=== PATIENT | male | born 1950 | race Caucasian/White ===

== ENCOUNTER → 2021-05-13 08:59 | Outpatient (CLI) | payer OTHER, SELFPAY ==
[2021-05-13 17:57] LABS: SARS-CoV-2 RNA PCR Negative
== END ==
PROVIDERS: PCP Internal Medicine; Visit Provider Internal Medicine
DX: Z20.822 Contact with and (suspected) exposure to COVID-19 (principal)
CPT/HCPCS: C9803; U0003; U0005

== ENCOUNTER 2022-03-19 14:26 | Outpatient (CLI) | payer OTHER, SELFPAY ==
--- NOTE | ~2022-03-19 | XR_ITS ---
XR elbow RT min 3V DATE: 03/19/2022 14:44 INDICATION: Right elbow injury, pain TECHNIQUE: 4 views COMPARISON: None FINDINGS: No fracture or dislocation of the ankle or joint effusion. No periosteal reaction or bone d estruction. IMPRESSION: Negative Reviewed, dictated and finalized at location B. [employer] IMPRESSION: Negative
== END 2022-03-19 14:27 | disposition home or self-care (01) ==
PROVIDERS: PCP Family Medicine; Visit Provider Family Medicine
DX: S59.901A Unspecified injury of right elbow, initial encounter (principal); X58.XXXA Exposure to other specified factors, initial encounter; M25.511 Pain in right shoulder
CPT/HCPCS: 73080

== ENCOUNTER 2022-05-11 09:27 | Outpatient (CLI) | payer OTHER, SELFPAY ==
--- NOTE | 2022-05-11 11:00 | NEURO_ITS ---
Impression: Patient reports a history of right elbow pain, as well as numbness in the right index finger. # Moderate right Carpal Tunnel Syndrome. # Normal needle/EMG exam. # Clinical correlation recommended. Motor Nerve Conduction Upper Extremities Median Nerve Conduction Velocity (m/sec) Terminal Latency (msec) Response Voltage(mV) Elbow-Wrist Wrist Elbow Wrist Right 63 5.2 5 5 Left Ulnar Nerve Conduction Velocity (m/sec) Terminal Latency (msec) Response Voltage(mV) Above Elbow Below Elbow Wrist Above Elbow Below Elbow Wrist Right 52 49 3.1 6 5 7 Left F-Wave Latency Median (ms) Ulnar (ms) Right 29.1 30.2 Left Sensory Nerve Conduction Upper Extremities Median Nerve Stimulation Terminal Latency (msec) Wrist/Digit Response Voltage (uV) Wrist Right 4.1/4.1 36/44 Left Ulnar Nerve Stimulation Terminal Latency (msec) Wrist/Digit Response Voltage (uV) Wrist Right 3.7 32 Left Radial Nerve Terminal Latency (msec) Response Voltage(mV) Right 2.3 27 Left Left Right Muscles Examined Fibrillation Fasciculation Scarcity Voltage Duration Left Right Left Right Left Right Left Right Left Right Deltoid Biceps X Brachioradialis Triceps X Pronator Teres X Ext Indicis X Ext Digitorum X Abd Poll Brev X 1st Dorsal Interosseus Paraspinals MTDD
== END 2022-05-11 09:28 | disposition home or self-care (01) ==
LOC: ANHNEURO 09:27
PROVIDERS: PCP Family Medicine; Visit Provider Family Medicine
DX: R20.2 Paresthesia of skin (principal); G56.01 Carpal tunnel syndrome, right upper limb
CPT/HCPCS: 95886; 95909

== ENCOUNTER 2022-06-04 09:45 | Outpatient (RCR) | payer OTHER, SELFPAY ==
--- NOTE | 2022-06-04 10:49 | OTOPEVAL1 ---
Assessment and note entered by Cali Garcia, ANASTASIIAR/Alberto, CHT Evaluation Information Assessment Status Evaluation & Discharge Diagnosis Carpal tunnel syndrome, Right UE Onset ~1 month ago Subjective Information Patient reports experiencing radiating pain in the right upper extremity after bumping his elbow about a month ago. He reports that at first the pain was so bad he was unable to sleep in bed and was having to sleep in a recliner. He states that he is back to normal sleeping and working out again, noting that he has been taking it easy on anything with the right arm. Reporting no pain at this time. States he wanted to still keep this appointment to be checked out and to ensure he was doing all the right things. Reported Pain Level Pain Score 0: Self Report Additional Pain Score Comments Patient reporting no pain today or for the past few days. He states all of his symptoms have nearly resolved. Assessment OT Clinical Summary Patient referred to outpatient hand therapy with dx of carpal tunnel syndrome. He reports onset of symptoms about a month ago when he bumped his elbow on a door. He was prescribed NSAID and has been resting the elbow. These have resolved his symptoms. Therapy evaluation today reveals normal ROM and strength of the right UE. Sensation tests are all normal. Tinel's of the ulnar and median nerve are negative. Nerve tension tests are also negative. Instructed in nerve flossing HEP to mobilize the nerve. Instructed in proper body mechanics with repetitive or prolonged tasks, such as when reading or at a computer. He verbalizes and demonstrates excellent understanding of all materials. No further skilled OT indicated at this time. Discharge with patient independent with all materials. Plan of Care OT Services Indicated No These treatments will address the objective and functional deficits as defined above. The patient will be advanced safely and appropriately in order for the patient to progress towards his/her prior level of function. Additional exercises will be introduced and as well as a comprehensive home exercise program upon discharge, if needed, ?to ensure carryover of functional gains achieved in the clinic. This treatment plan has been reviewed and agreement upon by the patient.
== END 2022-06-04 11:06 | disposition home or self-care (01) ==
LOC: ANHHIOT 09:45
PROVIDERS: PCP Family Medicine; Visit Provider Family Medicine
DX: G56.01 Carpal tunnel syndrome, right upper limb (principal)
CPT/HCPCS: 97110; 97165

== ENCOUNTER 2024-01-19 13:06 | Outpatient (CLI) | payer OTHER, SELFPAY ==
--- NOTE | ~2024-01-19 | CT_ITS ---
EXAMINATION: CT abdomen pelvis wo con DATE: 01/19/2024 13:26 INDICATION: Hematuria, unspecified. TECHNIQUE: Computed tomography (CT) of the abdomen and pelvis was performed without intravenous contr ast. Automated exposure control and iterative reconstruction technique were employed. The dose-length product was 757.52 mGy-cm. COMPARISON: None. FINDINGS: The visualized portions of the lung bases are clear without pneumonia or pleural effusion. The heart size is normal. No pericardial effusion. There is a 2.0 cm subcutaneous mass in left automotive finance manager ior thorax, likely a sebaceous cyst. There are cysts in the liver measuring up to 15 mm. The gallblad rosa is normal. Calcifications in the spleen are consistent with old granulomatous disease. The pancre as and adrenal glands are normal. There are masses in the right kidney measuring up to 17 mm measurin g soft tissue attenuation. There are 7 stones in right kidney measuring up to 5 mm. There is a 7 mm s tone in left kidney. There is mild left hydronephrosis and proximal hydroureter. There is a 6 mm ston e in proximal left ureter. The prostate is moderately enlarged. There are no dilated loops of bowel. The appendix is not visualized. There are no pathologically enlarged lymph nodes. There is no free in traperitoneal fluid. There is mild lumbar spondylosis. IMPRESSION: 1. 6 mm stone in proximal left ureter with mild left hydronephrosis and proximal hydroureter. 2. Bilateral nonobstructing kidney stones. 3. Right kidney masses measuring up to 17 mm, which may be hemorrhagic cysts, but renal cell carcinom a cannot be excluded. Abdomen MRI or CT without and with contrast is recommended. Reviewed, dictated and finalized at location A. IMPRESSION: 1. 6 mm stone in proximal left ureter with mild left hydronephrosis and proxima l hydroureter. 2. Bilateral nonobstructing kidney stones. 3. Right kidney masses measuring up to 17 mm, which may be hemorrhagic cysts, b ut renal cell carcinoma cannot be excluded. Abdomen MRI or CT without and with contrast is recommended.
== END 2024-01-19 13:07 | disposition home or self-care (01) ==
LOC: GOSHIMG 13:06
PROVIDERS: PCP Nurse Practitioner Family; Visit Provider Nurse Practitioner Family
DX: R10.9 Unspecified abdominal pain (principal); R31.9 Hematuria, unspecified; N20.0 Calculus of kidney
CPT/HCPCS: 74176

== ENCOUNTER 2024-01-24 13:43 | Outpatient (CLI) | payer OTHER, SELFPAY ==
--- NOTE | ~2024-01-24 | XR_ITS ---
XR abdomen/kub 1V Ordering provider: Mario Garza MD History: . Lt ureteral stone . Comparison: January 18, 2024 FINDINGS: BOWEL: Nonobstructive bowel gas pattern. ORGANOMEGALY: None. SIGNIFICANT PATHOLOGIC CALCIFICATIONS: Stone is seen projected over the left sacral alar. OTHER: No free air is seen under the diaphragm. Degenerative changes of the spine. Bilateral hip oste oarthritic changes. IMPRESSION: NO ACUTE ABDOMINAL FINDINGS. Left lower ureteric stone. Reviewed, dictated and finalized at location A.
== END 2024-01-24 13:44 | disposition home or self-care (01) ==
PROVIDERS: PCP Nurse Practitioner Family; Visit Provider Urology
DX: N20.1 Calculus of ureter (principal)
CPT/HCPCS: 74018

== ENCOUNTER 2024-01-27 00:33 | Day surgery (SDC) | payer OTHER, SELFPAY ==
[2024-01-26 13:29] VITALS: BMI 25.1
--- NOTE | 2024-01-26 13:46 | PC.NURSE ---
Report to the Outpatient Waiting Room, entrance under the green pavilion located off [facility], at time ___9:30AM____ on date ___01/27/24____. Planned Procedure Time: ___11:30AM .? Time changes happen often and if your time is changed the preop area will call you the afternoon before. - You and your visitor will be asked to self-screen and do not enter if you have any COVID symptoms. Please call surgeon if you need to reschedule. - A mask is optional within the hospital at this time. Patients may have clear liquids (water, carbonated beverages, clear teas, apple juice) until 3 hours prior to surgery with a maximum of 20 ounces. - No food from midnight until time of surgery and no smoking - Infants may have breast milk until 4 hours before surgery, formula 6 hours prior to surgery. - Children will be allowed to drink immediately following surgery.? If applicable, please bring a bottle or sippy cup to assist with drinking. Juice, water, soda, and popsicles are readily available.? For infants on formula, please bring formula the day of surgery.? Pacifiers are allowed. Take only the following medications with a SIP of water on the morning of surgery: HYDROCODONE NEEDED FOR PAIN DO NOT STOP ANY OF YOUR OTHER PRESCRIPTION MEDICATIONS PRIOR TO SURGERY EXCEPT THE FOLLOWING Medications to discontinue per physician HOLD ALL VITAMINS/SUPPLEMENTS 3 DAYS PRE-OP PER ANESTHESIA -STARTING NOW Date to take last dose____01/26/24 Please no make-up, nail divehi, hairspray, perfume, deodorant, or body powder the day of surgery.? No jewelry (including any body piercings) or valuables the day of surgery, leave them at home.? Please take a shower or bath the night before, or the morning of, surgery with an antibacterial soap.? Wear comfortable, loose fitting clothing.? Children are encouraged to wear pajamas. - Jewelry must be removed prior to entering the operating room.? Rings and piercings that are not removed may be cut off. - The hospital will not accept responsibility for valuables.? - Please leave all valuables, including medications, at home the day of surgery. If you are going home after surgery, a licensed dairy truck driver must drive you home.? - NO public transportation without another adult if you receive anesthesia. - We recommend that an adult stay with you for 24 hours following discharge. - We also recommend that you do not drive, make important decision, drink alcoholic beverages, or take any drugs that were not prescribed by your health care provider for at least 24 hours after your discharge time. For Pediatric surgeries, we recommend two adults accompany the child home. Follow any additional instructions given to you from your surgeon. Telephone instructions given to ____PATIENT and asked if any additional questions and then verbalized understanding. Patient advised to call surgeon office or pre surgery nurse liaison [phone] if any additional questions.
[2024-01-27] VITALS (9 sets, daily range): BP systolic 117–152; BP diastolic 70–81; PULSE 51–60; RESP 12–20; TEMP 36.3–36.8; O2SAT 99–100
--- NOTE | ~2024-01-27 | XR_ITS ---
XR abdomen/kub 1V 01/27/2024 10:53 Indication: Preop ESWL. Renal stones. Procedure: KUB Comparison: 01/24/2024 Findings: Bowel gas pattern nonobstructive. There are pelvic phleboliths. Bowel content obscures the kidneys li miting evaluation for renal stones. Lung bases unremarkable. Moderate lumbar spondylosis. Impression: 1: No acute abdominal abnormality. Reviewed, dictated and finalized at location B. Impression: 1: No acute abdominal abnormality.
--- NOTE | 2024-01-27 06:39 | WPDHPUPDATE1 ---
History and Physical Update Update Date/Time: 01/27/24 06:39 History and Physical has been reviewed, including an updated exam of the patient. There are NO changes in the patient's condition. Risks, benefits, and alternatives have been discussed and questions answered. Patient agrees to proceed with procedure.
--- NOTE | 2024-01-27 09:59 | ECG_ITS ---
Test Date: 2024-01-27 10:14:31 Measurements Intervals [place] Rate: 57 P: 83 MA: 164 QRS: -57 QRSD: 105 T: 32 QT: 433 QTc: 422 Interpretive Statements SINUS BRADYCARDIA MARKED LEFT AXIS DEVIATION [QRS AXIS < -30] No previous ECG available for comparison Electronically Signed On 01-27-2024 13:43:06 CDT by Houston Davis M.D.
--- NOTE | 2024-01-27 10:29 | WPDANESEPPF ---
Anes - Initial Pre Proc Eval Procedure: Operation Date: 01/27/24 11:30 Proposed Procedures p Left Extracorporeal Shock Wave Lithotripsy - Mario Garza MD s Flexible Cystoscopy - Mario Garza MD Date/Time: 01/27/24 10:29 Surgeon: Mario Garza MD Pre Op Diagnosis: Lt Ureteral Stone Patient Data Age: 73 Gender: M Height: 1.83 m Weight: 83.4 kg Allergies Allergy/AdvReac Type Severity Reaction Status Date / Time No Known Allergies Allergy Verified 01/26/24 13:26 Home Medications Medication Instructions Recorded Confirmed Type lisinopril 40 mg tablet See Rx Instructions .Route 06/27/23 01/26/24 Rx .COMPLEX #90 tabs hydrocodone 5 mg-acetaminophen 325 1 tablet PO TID PRN pain #30 tabs 01/20/24 01/26/24 Rx mg tablet tamsulosin 0.4 mg capsule (Flomax) 0.4 mg PO QHS #14 caps 01/20/24 01/26/24 Rx multivitamin 1 tablet PO DAILY 01/26/24 01/26/24 History Patient hx anesthesia problems: none Family hx anesthesia problems: none Results Review: All pre-operative results and documents have been reviewed as part of the pre-operative evaluation. [facility] Past Medical History Medical History Carpal tunnel syndrome Elevated PSA Hypertension Injury of right elbow Medial epicondylitis, right elbow Right elbow pain Right lateral epicondylitis Family History Family History Grandparent Family history of malignant neoplasm Social History Social History Smoking status: Never smoker Second hand tobacco smoke exposure: No Alcohol intake: current Drinks per week: 1 Alcohol use details: wine cooler Substance use: never Substance use type: does not use Do You Feel Safe in your Home?: Yes Lack of Transportation: No Lack of Food: Never True Current Housing: I Have Housing Concerned About Future Housing: No Difficulty Paying Gas/Electric Bills: No Difficulty Paying for Meds: No Currently Unemployed: No Education: Bachelor's Degree Difficulty w/ Childcare or Family Care: No Living arrangements: with family Additional living arrangements comments: Occupation/Education: retired Gender identity (if verbalized by the patient): Male Spiritual care concerns: No Agree to blood products: Yes Anes - Eval Final PreProcedure Day of Procedure 01/27/24 10:29 Patient weight: normal Heart: regular rate and rhythm Lungs: clear to auscultation Airway: Mallampati scale class II Neurological: alert and oriented Last oral intake: >/= 8 hours ASA classification: II Emergent: no Anesthetic plan: proceed Anesthesia type and monitoring: general LMA and standard monitoring Results Review: All pre-operative results and documents have been reviewed as part of the pre-operative evaluation. Informed Consent: The patient's anesthetic plan and its attendant risks and benefits were discussed with the patient/family/POA. Questions were solicited and answers provided to the satisfaction of the patient/family/POA.
[2024-01-27] MEDS: LACTATED RINGERS 1,000 ML 30 ML IV CONT (10:55)
[2024-01-27 11:17] LABS: INR 1.1; Partial Thromboplastin Time 23.8 Seconds (22.3-36.8); Prothrombin Time 14.8 Seconds (11.1-14.7)
[2024-01-27] MEDS: ceFAZolin 2 GM/D5W 50 ML 2 GM/50 ML BAG IVPB (11:22)
--- NOTE | 2024-01-27 12:04 | W.PM.PROC2 ---
Procedure Note - Detailed Date of Procedure 01/27/24 Pre-op Diagnosis Lt Ureteral Stone Post-op Diagnosis Same Procedure Performed Left ESWL Surgeon Mario Garza MD Anesthesia General Description of Procedure The patient was brought to the operative suite where he was placed in the supine position on the Dornier lithotripsy table. The focal point of the lithotripter was placed at an 8mm left mid-ureteral calculus. A total of 3000 shocks were delivered at a power setting of 6. There appeared to be good fragmentation of the stone. The patient tolerated the procedure well and was taken to the recovery room in good condition. Drains No Packing No Pathology None sent
== END 2024-01-27 14:10 | disposition home or self-care (01) ==
PROVIDERS: PCP Nurse Practitioner Family; Visit Provider Urology
PROC: (CPT 50590; principal; 2024-01-27 11:30)
PROC: 0TJB8ZZ Inspection of Bladder, Via Natural or Artificial Opening Endoscopic (ICD-10-PCS; CPT 52000; 2024-01-27 11:30)
DX: N20.1 Calculus of ureter (principal); I10 Essential (primary) hypertension; N40.1 Benign prostatic hyperplasia with lower urinary tract symptoms; R39.12 Poor urinary stream; Z79.891 Long term (current) use of opiate analgesic; Z98.890 Other specified postprocedural states; Z80.9 Family history of malignant neoplasm, unspecified
CPT/HCPCS: 50590; 36415; 74018; 85610; 85730; 93005; J0690; J1100; J2405; J2704; J7030; J7120

== ENCOUNTER 2024-02-07 12:27 | Outpatient (CLI) | payer OTHER, SELFPAY ==
--- NOTE | ~2024-02-07 | XR_ITS ---
Supine and upright views of the abdomen Clinical history: Ureteral stone COMPARISON: 01/27/2024 Findings: Bowel gas pattern is nonspecific. No evidence for obstruction or free air. Stable presumed pelvic phleboliths. Osseous structures are intact. Impression: No interval change. Stable presumed pelvic phleboliths. Reviewed, dictated and finalized at [facility]. Impression: No interval change. Stable presumed pelvic phleboliths.
== END 2024-02-07 12:28 | disposition home or self-care (01) ==
PROVIDERS: PCP Nurse Practitioner Family; Visit Provider Urology
DX: N20.1 Calculus of ureter (principal)
CPT/HCPCS: 74018